=== PATIENT | female | born 1985 | race Caucasian/White ===

== ENCOUNTER 2021-03-09 12:09 | Emergency (ER) | payer SELFPAY ==
[~2021-03-09] VITALS: Ht 180.3 cm; Wt 185.1 kg
--- NOTE | 2021-03-09 12:18 | NUR ---
PT IS IN ROOM #2B. DR READ EVALUATED THE PT.
[2021-03-09] MEDS ORDERED: KETOROLAC TROMETHAMINE 15 MG INJ IM ONE (12:30)
[2021-03-09] MEDS ORDERED: KETOROLAC TROMETHAMINE 30 MG INJ ONE (12:46)
[2021-03-09] MEDS ORDERED: IBUP-1955 PO (12:54)
--- NOTE | 2021-03-09 13:08 | NUR ---
PT WAS D/C'd TO HOME . D/C INSTRUCTIONS GIVEN TO THE PT BY DR READ.
[2021-03-09 13:09] VITALS: BP 137/69
== END 2021-03-09 13:10 | disposition home or self-care (01) ==
LOC: ER 12:09
DX: Z04.1 Encounter for examination and observation following transport accident (principal); M25.512 Pain in left shoulder; I10 Essential (primary) hypertension
CPT/HCPCS: 71045; 73030; 96372; 99284; J1885; A4663